=== PATIENT | female | born 1955 | race Hispanic/Latino ===

== ENCOUNTER → 2019-10-19 | Outpatient (CLI) | payer OTHER ==
--- NOTE | 2019-10-19 12:30 | Diagnostic Imaging Report ---
Exam: Bone mineral density study. History: Osteoporosis screening, postmenopausal status Comparison: None Discussion: Evaluation of the left hip and lumbar spine was performed. The study is technically adequate. The patient's fracture risk is compared to an age-matched control. The patient denies prior surgery/fracture of the spine, hips or forearm. Left hip femoral neck bone mineral density: 0.582 g/cm2, T-score is -2.5, Z-score is 1.0. Left hip total bone mineral density: 0.744 g/cm2, T-score is -1.6, Z-score is -0.5. Lumbar spine total bone mineral density: 0.729 gm/cm2, T-score is -2.9, Z-score is -1.1. Impression: 1. Bone mineralization by WHO Classification of the left hip is osteoporosis, the fracture risk is increased. 2. Bone mineralization by WHO Classification of the lumbar spine is osteoporosis, the fracture risk is increased. <T score: NL = -1 or higher Osteopenia = -1 to -2.5 Osteoporosis = -2.5 or lower Z score: < - 1.5 concerning for path> Recommendations: Medical evaluation for secondary causes of low bone mineral density may be appropriate. Correlate clinically for the necessity and timing of the next bone mineral density study. Signed by: Dr. Karson Diallo MD on 10/19/2019 12:27 PM
== END ==
LOC: MAMMO 10:48
PROVIDERS: ATTEND Internal Medicine
DX: Z12.31 Encounter for screening mammogram for malignant neoplasm of breast (principal); M85.80 Other specified disorders of bone density and structure, unspecified site
CPT/HCPCS: 77067; 77080

== ENCOUNTER → 2020-02-03 | Outpatient (CLI) | payer MEDICARE ==
[~2020-02-03] MED LIST: GADOBENATE DIMEGLUMINE 1 ML IV ONE
[2020-02-03 11:09] LABS: BLOOD UREA NITROGEN 13 mg/dL (7-26); BUN/CREATININE RATIO 16 (6-25); CREATININE, SERUM 0.79 mg/dL (0.57-1.11); EST GLOMERULAR FILTRATION RATE > 60 ML/MIN (60-)
--- NOTE | 2020-02-03 12:21 | Diagnostic Imaging Report ---
MRI BRAIN WOW HISTORY: Dizziness, history of brain tumor resection COMPARISON: None available at time of dictation. TECHNIQUE: Multiplanar, multisequence MRI of the brain (including diffusion-weighted imaging) was performed before and after the administration of intravenous, gadolinium based contrast. DISCUSSION: Scalp/bone marrow: Left parietal craniotomy changes are present.. Brain sulci: Appropriate for patient's age. Ventricles: Normal in size and configuration. No hydrocephalus. Extra-axial spaces: No masses or fluid collections. Parenchyma: Approximately 3 cm resection cavity along the left anterior paracentral lobule/supplementary motor cortex region is present. Minimal adjacent parenchymal T2/FLAIR hyperintensity is likely related to gliosis and encephalomalacia. No suspicious enhancement is seen in or around the resection cavity. Scattered T2/FLAIR hyperintense foci throughout the supratentorial white matter are likely chronic microvascular ischemic changes. Otherwise, no mass, acute hemorrhage, or acute vascular insults. Vessels: Normal flow voids in major arteries and veins. Sellar/Suprasellar region: No abnormalities. Craniocervical junction: No abnormalities. Incidental findings: None. IMPRESSION: 1. No acute intracranial abnormalities. 2. Left parietal craniotomy changes. Underlying resection cavity along the left anterior paracentral lobule/supplementary motor cortex region with local encephalomalacia. No suspicious enhancement in or around the resection cavity. 3. Mild supratentorial chronic microvascular ischemic change. Signed by: Dr. Ulysses Hernandez M.D. on 02/03/2020 12:17 PM
== END ==
LOC: MRI 10:24
PROVIDERS: ATTEND Internal Medicine
DX: D49.6 Neoplasm of unspecified behavior of brain (principal)
CPT/HCPCS: 36415; 70553; 82565; 84520

== ENCOUNTER → 2021-01-18 | Outpatient (CLI) | payer MEDICARE | LOC: MAMMO 12:10 | PROVIDERS: ATTEND Internal Medicine | DX: Z12.31 Encounter for screening mammogram for malignant neoplasm of breast (principal) | CPT/HCPCS: 77067 ==